=== PATIENT | female | born 1990 | race Caucasian/White ===

== ENCOUNTER 2019-05-10 12:47 | Emergency (ER) | payer OTHER ==
--- NOTE | 2019-05-10 13:33 | ER Document Report ---
ED Medical Screen (RME) - General Chief Complaint: Vag Bleeding, +preg <12wks Stated Complaint: VAGINAL BLEEDING Time Seen by Provider: 05/10/19 13:31 Primary Care Provider: JASON DURHAM FNP [Primary Care Provider] - Follow up as needed Mode of Arrival: Ambulatory Information source: Patient Notes: 28-year-old female patient G2, P1 presenting to the emergency department with chief complaint of vaginal bleeding in the setting of . Patient reports she started having some low abdominal pain last night however this morning she passed some bloody tissue. Patient is very tearful in triage. Exam: Mild tenderness across the low abdomen. I have greeted and performed a rapid initial assessment of this patient. A comprehensive ED assessment and evaluation of the patient, analysis of test results and completion of the medical decision making process will be conducted by additional ED providers. I have specifically instructed the patient or family members with the patient to immediately return to any nursing staff should anything change in the patient's condition or with their chief complaint. Physical Exam - Vital signs Vitals: Temp Pulse Resp BP Pulse Ox 98.7 F 128 H 18 148/78 H 99 05/10/19 12:51 05/10/19 12:51 05/10/19 12:51 05/10/19 12:51 05/10/19 12:51 Course - Vital Signs Vital signs: Temp Pulse Resp BP Pulse Ox 98.7 F 128 H 18 148/78 H 99 05/10/19 12:51 05/10/19 12:51 05/10/19 12:51 05/10/19 12:51 05/10/19 12:51 Doctor's Discharge - Discharge Referrals: JASON DURHAM FNP [Primary Care Provider] - Follow up as needed
[2019-05-10 14:17] LABS: ABSOLUTE EOSINOPHILS # (AUTO) 0.1 10^3/uL (0.0-0.6); ABSOLUTE LYMPHOCYTES (AUTO) 1.9 10^3/uL (0.5-4.7); ABSOLUTE MONOCYTES (AUTO) 0.6 10^3/uL (0.1-1.4); ABSOLUTE NEUT (AUTO) 9.4 10^3/uL (1.7-8.2); BASOPHILS % (AUTO) 0.4 % (0-2); EOSINOPHILS % (AUTO) 0.5 % (0-6); HEMOGLOBIN 14.1 g/dL (12.0-15.5); LYMPHOCYTES % (AUTO) 15.8 % (13-45); MEAN CORPUSCULAR HEMOGLOBIN 29.2 pg (27.0-33.4); MEAN CORPUSCULAR HGB CONC 34.5 g/dL (32.0-36.0); MEAN CORPUSCULAR VOLUME 85 fl (80-97); MONOCYTES % (AUTO) 4.9 % (3-13); PLATELET COUNT 357 10^3/uL (150-450); RED BLOOD COUNT 4.84 10^6/uL (3.72-5.28); RED CELL DISTRIBUTION WIDTH 13.9 % (11.5-14.0); SEGMENTED NEUTROPHILS % (AUTO) 78.4 % (42-78); TOTAL CELLS COUNTED % (AUTO) 100 %; WHITE BLOOD COUNT 11.9 10^3/uL (4.0-10.5)
[2019-05-10 14:29] LABS: APPEARANCE,URINE CLOUDY; BILIRUBIN,URINE NEGATIVE (NEGATIVE); COLOR,URINE YELLOW; GLUCOSE, URINE NEGATIVE (NEGATIVE); KETONES,URINE NEGATIVE (NEGATIVE); LEUKOCYTE ESTERASE,URINE SMALL (NEGATIVE); NITRITE,URINE NEGATIVE (NEGATIVE); PROTEIN,URINE NEGATIVE (NEGATIVE); URINE SPECIFIC GRAVITY 1.001; UROBILINOGEN,URINE NEGATIVE mg/dL (<2.0)
[2019-05-10 14:32] LABS: ALBUMIN 4.6 g/dL (3.5-5.0); ALKALINE PHOSPHATASE 98 U/L (38-126); ANION GAP 11 (5-19); ASPARTATE AMINO TRANSFERASE 25 U/L (14-36); BILIRUBIN,DIRECT 0.2 mg/dL (0.0-0.4); BILIRUBIN,TOTAL 0.5 mg/dL (0.2-1.3); BLOOD UREA NITROGEN 9 mg/dL (7-20); CALCIUM 9.6 mg/dL (8.4-10.2); CARBON DIOXIDE 26 mmol/L (22-30); CHLORIDE 102 mmol/L (98-107); GLUCOSE 102 mg/dL (75-110); POTASSIUM 4.2 mmol/L (3.6-5.0); TOTAL PROTEIN 8.2 g/dL (6.3-8.2)
--- NOTE | 2019-05-10 15:04 | RADIOLOGY REPORT (SQ) ---
EXAM DESCRIPTION: U/S OB TRANSVAGINAL W/O DOP COMPLETED DATE/TIME: 05/10/2019 2:21 pm REASON FOR STUDY: vag bleed, +preg approx 8 weeks COMPARISON: None. TECHNIQUE: Endovaginal static and realtime grayscale images acquired of the pelvis. Additional selec malgorzata spectral and color Doppler images recorded. All images stored on PACs. CLINICAL AGE: Last menstrual period BHCG: Not available LIMITATIONS: None. FINDINGS: UTERUS: An anechoic sac fills the endometrial canal, measuring 3.2 by 1.4 by 2 cm in size. No embryo or yolk sac. This likely represents a blighted ovum. Pseudo gestational sac from ectopi c could not entirely be excluded. Endometrial stripe is thickened, 2 cm in thickness. There is a small amount of fluid in the cervix. RIGHT ADNEXA: Right ovary is 2.4 x 2.2 x 1.9 cm in size with a 1.8 cm complex cyst, most likely a cor pus luteum. Right ovarian ectopic could not entirely be excluded. Normal right ovary colo r flow and spectral Doppler suggests against torsion. No adnexal free fluid. No adnexal masses. LEFT ADNEXA: Normal ovary with normal vascular flow. Left ovary 2.4 x 1.4 x 1.2 cm in size. No adnexal free fluid. No adnexal masses. FREE FLUID: None. OTHER: No other significant finding. IMPRESSION: Findings most likely represent a blighted ovum with spontaneous in progress. R ight ovary corpus luteum. Right ovarian ectopic and pseudo gestational sac could not entir yuliya be excluded No free pelvic fluid COMMENT: Findings discussed with Steffi Liu emergency room TECHNICAL DOCUMENTATION: JOB ID: [id number] [employer]- All Rights Reserved Reading location - IP/workstation name: [facility]
[2019-05-10 16:39] VITALS: BP 131/76
--- NOTE | 2019-05-10 16:39 | ER Document Report ---
ED GI/ - General Chief Complaint: Vaginal Bleeding Stated Complaint: VAGINAL BLEEDING Time Seen by Provider: 05/10/19 13:31 Primary Care Provider: [facility] [Provider Group] - Follow up as needed JASON DURHAM FNP [NO LOCAL MD] - Follow up as needed Mode of Arrival: Ambulatory Information source: Patient Notes: 28-year-old female presented to ED for complaint of vaginal bleeding and passing of some "white tissue "she states she has had some bleeding also. She states she is not having a lot of cramping she is sore down there and feels like there is some pressure. I did give the labs and ultrasound results to the patient and and then left him with time to accept the information. I have then come back in and they have agreed to follow-up with MINING ANALYST in the morning. She is O- blood type and states she did get RhoGam on April 09 for spotting in early . She states at that time she did have an early with a vis ible heartbeat with no audible heartbeat. - HPI Patient complains to provider of: , Vaginal bleeding Onset: Yesterday Timing/Duration: Gradual Quality of pain: Other Severity in ED: Mild Pain Level: 1 Vaginal bleeding (Compared to normal period): Spotting LMP: Miscarriage : 2 heart tones (bpm): 0 OB ultrasound done: Yes Associated symptoms: Other Exacerbated by: Denies Relieved by: Denies Similar symptoms previously: Yes Recently seen / treated by doctor: Yes Past Medical History - General Information source: Patient - Social History Smoking Status: Never Smoker Frequency of alcohol use: None Drug Abuse: None Lives with: Family Family History: Reviewed & Not Pertinent Patient has suicidal ideation: No Patient has homicidal ideation: No - Past Medical History Cardiac Medical History: Reports: None Pulmonary Medical History: Reports: None EENT Medical History: Reports: None Neurological Medical History: Reports: None Endocrine Medical History: Reports: None Renal/ Medical History: Reports: None Malignancy Medical History: Reports: None GI Medical History: Reports: None Musculoskeletal Medical History: Reports None Skin Medical History: Reports None Traumatic Medical History: Reports: None Infectious Medical History: Reports: None Surgical Hx: Negative Past Surgical History: Reports: None - Immunizations Immunizations up to date: Yes Review of Systems - Review of Systems Constitutional: No symptoms reported EENT: No symptoms reported Cardiovascular: No symptoms reported Respiratory: No symptoms reported Gastrointestinal: No symptoms reported Genitourinary: No symptoms reported Female Genitourinary: , Vaginal bleeding Musculoskeletal: No symptoms reported Skin: No symptoms reported Hematologic/Lymphatic: No symptoms reported Neurological/Psychological: No symptoms reported -: Yes All other systems reviewed and negative Physical Exam - Vital signs Vitals: Temp Pulse Resp BP Pulse Ox 98.7 F 128 H 18 148/78 H 99 05/10/19 12:51 05/10/19 12:51 05/10/19 12:51 05/10/19 12:51 05/10/19 12:51 Interpretation: Normal - General General appearance: Appears well, Alert - HEENT Head: Normocephalic, Atraumatic Eyes: Normal Pupils: PERRL - Respiratory Respiratory status: No respiratory distress Chest status: Nontender Breath sounds: Normal Chest palpation: Normal - Cardiovascular Rhythm: Regular Heart sounds: Normal auscultation Murmur: No - Abdominal Inspection: Normal Distension: No distension Bowel sounds: Normal Tenderness: Nontender Organomegaly: No organomegaly - Back Back: Normal, Nontender - Extremities General upper extremity: Normal inspection, Nontender, Normal color, Normal ROM, Normal temperature General lower extremity: Normal inspection, Nontender, Normal color, Normal ROM, Normal temperature, Normal weight bearing. No: Jax's sign - Neurological Neuro grossly intact: Yes Cognition: Normal Orientation: AAOx4 Yadin Coma Scale Eye Opening: Spontaneous Aydin Coma Scale Verbal: Oriented Aydin Coma Scale Motor: Obeys Commands Aydin Coma Scale Total: 15 Speech: Normal Motor strength normal: LUE, RUE, LLE, RLE Sensory: Normal - Psychological Associated symptoms: Normal affect, Normal mood - Skin Skin Temperature: Warm Skin Moisture: Dry Skin Color: Normal Course - Re-evaluation Re-evalutation: 05/10/19 16:48 Discussed labs and ultrasound with patient. Patient's pulse was still [address] Morales. He states as long as the pulse came down or did not go up she could go home and a half an hour. She states she would follow-up with the MINING ANALYST in the morning. - Vital Signs Vital signs: Temp Pulse Resp BP Pulse Ox 98.2 F 100 20 131/76 H 100 05/10/19 16:38 05/10/19 17:10 05/10/19 16:38 05/10/19 16:38 05/10/19 16:38 - Laboratory Result Diagrams: 05/10/19 13:45 05/10/19 13:45 Laboratory results interpreted by me: 05/10/19 05/10/19 05/10/19 13:45 13:45 14:15 WBC 11.9 H Absolute Neuts (auto) 9.4 H Seg Neutrophils % 78.4 H Beta HCG, Quant 5573.50 H Urine Blood LARGE H Ur Leukocyte Esterase SMALL H - Diagnostic Test Radiology reviewed: Image reviewed, Reports reviewed Discharge - Discharge Clinical Impression: Spontaneous Condition: Stable Disposition: HOME, SELF-CARE Additional Instructions: Miscarriage You have had a miscarriage (medically called a "spontaneous "). The miscarriage occurred because the fetus did not develop normally. There is nothing you did to cause it, and nothing you could have done to prevent it. About one in four ends in miscarriage. You should rest in bed for two or three days. As there is some risk of infection of the uterus, you should not have intercourse for one week (or until okayed by your physician). You might not have a period for six to eight weeks. You should not become again for at least three months -- the uterus requires time to get back to normal. Call the doctor or return for re-examination if there is heavy or persistent vaginal bleeding, fever, foul discharge, continued cramping pains, or abdominal pain. FOLLOW-UP CARE: If you have been referred to a physician for follow-up care, call the physicians office for an appointment as you were instructed or within the next two days. If you experience worsening or a significant change in your symptoms (very heavy bleeding with large clots of blood, passage of tissue, more severe abdominal / pelvic pain or cramping, feeling faint or severe weakness, fever, etc.), notify the physician immediately or return to the Emergency Department at any time for re-evaluation. OBSTETRIC-GYNECOLOGIC (OB-TERRAZZO HELPER) PHYSICIANS IN [place]: [facility] [address] [place] [address] [phone] Prescriptions: Ibuprofen [Motrin 600 mg Tablet] 600 mg PO Q8HP PRN #20 tablet PRN Reason: Forms: Elevated Blood Pressure, Return to Work Referrals: JASON DURHAM FNP [NO LOCAL MD] - Follow up as needed [facility] [Provider Group] - Follow up as needed
== END 2019-05-10 17:20 | disposition home or self-care (01) ==
LOC: ER 12:47
DX: O03.9 Complete or unspecified spontaneous abortion without complication (principal)
CPT/HCPCS: 36415; 76817; 80053; 81001; 84702; 85025; 86850; 86870; 86900; 86901; 99284

== ENCOUNTER 2020-04-08 19:46 | Outpatient (CLI) | payer OTHER ==
[2020-04-08 20:20] LABS: APPEARANCE,URINE CLEAR; BILIRUBIN,URINE NEGATIVE (NEGATIVE); COLOR,URINE STRAW; GLUCOSE, URINE NEGATIVE (NEGATIVE); KETONES,URINE NEGATIVE (NEGATIVE); LEUKOCYTE ESTERASE,URINE TRACE (NEGATIVE); NITRITE,URINE NEGATIVE (NEGATIVE); PROTEIN,URINE NEGATIVE (NEGATIVE); URINE SPECIFIC GRAVITY 1.006; UROBILINOGEN,URINE NEGATIVE mg/dL (<2.0)
[2020-04-08 20:45] LABS: URINE AMPHETAMINES SCREEN NEGATIVE; URINE BARBITURATES SCREEN NEGATIVE; URINE BENZODIAZEPINES SCREEN NEGATIVE; URINE COCAINE SCREEN NEGATIVE; URINE MARIJUANA (THC) SCREEN NEGATIVE; URINE METHADONE SCREEN NEGATIVE; URINE PHENCYCLIDINE SCREEN NEGATIVE
--- NOTE | 2020-04-08 20:50 | Non Stress Test Report ---
Non Stress Test Datetime Report Generated by CPN: 04/08/2020 20:50 DEMOGRAPHIC EGA NST: 40.2 INDICATION Indication for Study (NST) Other: SROM ? VITAL SIGNS Temperature - NST: 98.4 RESP - NST: 16 MONITORING Monitor Explained: Monitor Explained; Test Explained; Patient Verbalized Understanding Time on Monitor: 04/08/2020 20:07 Time off Monitor: 04/08/2020 20:40 NST Duration: 33 NST INTERVENTIONS NST Interventions: PO Hydration; Reposition Patient Physician Notified NST: Corado Physician Notified NST: Dr Corado BABY A: [id number] BABY A Movement : Present Contraction Frequency : 10 FHR Baseline : 125 Accelerations : 15X15 Decelerations : None Variability : Moderate 6-25bpm NST Review: Meets Criteria for Reactive NST NST Review and Verified By : Luke Wallace RN NST Results: Reactive NST REPORT Report Trigger: Send Report
== END 2020-04-08 20:49 | disposition home or self-care (01) ==
LOC: LC 19:46
PROVIDERS: ATTEND Student in an Organized Health Care Education/Training Program
DX: O47.1 False labor at or after 37 completed weeks of gestation (principal); Z3A.40 40 weeks gestation of pregnancy
CPT/HCPCS: 59025; 80307; 81005; 84112

== ENCOUNTER 2020-04-15 06:32 | Inpatient (IN) | payer OTHER ==
--- NOTE | 2020-04-15 07:12 | Admission Physical ---
Datetime Report Generated by CPN: 04/15/2020 07:12 CURRENT ADMISSION Chief Complaint: Uterine Contractions Indication for Induction- Other: GDM Admit Impression : Term, Intrauterine Admit Plan: Admit to Unit; Initiate Labor Induction Protocol ALLERGIES Medication Allergies: No Medication Allergies: No Known Allergies (04/15/2020) Latex: No Latex Allergies Food Allergies: no Environmental Allergies: no OBSTETRICAL HISTORY EDC: 04/06/2020 00:00 : 3 Para: 1 Term: 1 : 0 SAB: 1 IAB: 0 Ectopic: 0 Livin Cesareans: 0 VBACs: 0 Multiple Births: 0 Gestational Diabetes: No Rh Sensitization: No Incompetent Cervix: No KRIS: No Infertility: No ART Treatment: No Uterine Anomaly: No IUGR: No Hx Previous C/S: No Macrosomia: No Hx Loss/Stillborn: No PIH: No Hx : No Placenta Previa/Abruption: No Depression/PP Depression: No PTL/PROM: No Post Hemorrhage: No Current Procedures: Ultrasound Obstetrical History Comments: 2013 G2- current SEE RECORDS Alcohol: No Marijuana : No Cocaine: No Other Illicit Drugs: No Cigarettes: Never Smoker. 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 Surgery: No Heart Disease: No Hosp/Surgery: No Autoimmune Disorder: No Anesthetic Complications: No Kidney Disease: No Abnormal Pap Smear: No Neuro/Epilepsy: No Psychiatric Disorders: No Other Medical Diseases: No Hepatitis/Liver Disease: No Significant Family History: No Varicosities/Phlebitis: No Trauma/Violence : No Thyroid Dysfunction: No Medical History Comments: anemia, tachycardia INFECTIOUS HISTORY Gonorrhea: No Genital Herpes: No Chlamydia: No Tuberculosis: No Syphilis: No Hepatitis: No HIV/AIDS Exposure: No Rash or Viral Illness: No HPV: No PHYSICAL EXAM General: Normal HEENT: Normal Neurologic: Normal Thyroid: Normal Heart: Normal Lungs: Normal Breast: Deferred Back: Normal Abdomen: Normal Genitourinary Exam: Normal Extremities: Normal DTRs: Normal Pelvic Type: Adequate Vital Signs: Reviewed VAGINAL EXAM Dilatation: 3 Effacement: 50 Station: -2 MEMBRANES Pooling: Negative Membranes: Intact FETUS A EGA: 41.2 Monitoring: External US FHR- Baseline: 130 Variability: Moderate 6-25bpm Decelerations: None FHR Category: Category I Presentation: Vertex Admit Comment: efw is 8-9 lbs PLANS FOR LABOR AND DELIVERY Labor and Delivery: None Pain Management: Epidural Feeding Preference: Breast Benefit of Breast Feed Discussed: Yes Circumcision: N/A INFORMED CONSENT Signature: with User ID: [email or web address]
[2020-04-15] MEDS ORDERED: LIDOCAINE 1% INJ-PF (10 MG/ML) 30 ML SDV ONE (07:33)
[2020-04-15] MEDS ORDERED: MISOPROSTOL 0.2 MG TABLET ONE (07:33)
[2020-04-15] MEDS ORDERED: OXYTOCIN/0.9 % SODIUM CHLORIDE 30 UNIT/500 ML RTUINJ ONE (07:33)
[2020-04-15] MEDS ORDERED: OXYTOCIN 10 UNIT/ML VIAL ONE (07:33)
[2020-04-15] MEDS ORDERED: OXYTOCIN/0.9 % SODIUM CHLORIDE 30 UNIT/500 ML RTUINJ IV PRN ×2 (07:55→16:36)
[2020-04-15] MEDS ORDERED: PENICILLIN G-K 5 MILLION UNIT VIAL ONE (07:58)
[2020-04-15] MEDS ORDERED: PENICILLIN G POTASSIUM 5,000,000 UNIT in DEXTROSE 5%-WATER 100 ML IV ONE (08:00)
[2020-04-15] MEDS ORDERED: RINGERS SOLUTION,LACTATED 1,000 ML IV ONE (08:00)
[2020-04-15 08:51] LABS: ABSOLUTE EOSINOPHILS # (AUTO) 0.1 10^3/uL (0.0-0.6); ABSOLUTE LYMPHOCYTES (AUTO) 1.9 10^3/uL (0.5-4.7); ABSOLUTE MONOCYTES (AUTO) 0.6 10^3/uL (0.1-1.4); ABSOLUTE NEUT (AUTO) 8.7 10^3/uL (1.7-8.2); BASOPHILS % (AUTO) 0.3 % (0-2); EOSINOPHILS % (AUTO) 0.6 % (0-6); HEMATOCRIT 30.9 % (36.0-47.0); HEMOGLOBIN 10.8 g/dL (12.0-15.5); LYMPHOCYTES % (AUTO) 17.1 % (13-45); MEAN CORPUSCULAR HEMOGLOBIN 29.8 pg (27.0-33.4); MEAN CORPUSCULAR HGB CONC 35.1 g/dL (32.0-36.0); MEAN CORPUSCULAR VOLUME 85 fl (80-97); PLATELET COUNT 241 10^3/uL (150-450); RED BLOOD COUNT 3.63 10^6/uL (3.72-5.28); RED CELL DISTRIBUTION WIDTH 15.1 % (11.5-14.0); TOTAL CELLS COUNTED % (AUTO) 100 %; WHITE BLOOD COUNT 11.3 10^3/uL (4.0-10.5)
[2020-04-15 09:03] LABS: APPEARANCE,URINE SLIGHTLY-CLOUDY; BILIRUBIN,URINE NEGATIVE (NEGATIVE); COLOR,URINE YELLOW; GLUCOSE, URINE NEGATIVE (NEGATIVE); KETONES,URINE NEGATIVE (NEGATIVE); LEUKOCYTE ESTERASE,URINE MODERATE (NEGATIVE); NITRITE,URINE NEGATIVE (NEGATIVE); PROTEIN,URINE NEGATIVE (NEGATIVE); URINE SPECIFIC GRAVITY 1.009; UROBILINOGEN,URINE NEGATIVE mg/dL (<2.0)
[2020-04-15 09:18] LABS: URINE AMPHETAMINES SCREEN NEGATIVE; URINE BARBITURATES SCREEN NEGATIVE; URINE BENZODIAZEPINES SCREEN NEGATIVE; URINE COCAINE SCREEN NEGATIVE; URINE MARIJUANA (THC) SCREEN NEGATIVE; URINE METHADONE SCREEN NEGATIVE; URINE PHENCYCLIDINE SCREEN NEGATIVE
[2020-04-15] MEDS: RINGERS SOLUTION,LACTATED 1,000 ML IV PRN ×3 (10:30→15:57)
[2020-04-15] MEDS ORDERED: PENICILLIN G POTASSIUM 2,500,000 UNIT in DEXTROSE 5%-WATER 50 ML IV SCH (12:00)
--- NOTE | 2020-04-15 12:06 | L&D Progress Notes ---
PROGRESS NOTES Datetime Report Generated by CPN: 04/15/2020 12:06 PROGRESS NOTE Impression: Reassuring Heart Rate Procedures: Artificial ROM; Sterile Vag Exam Plan: Continue Present Management; Induction; Antibiotic Therapy Plan Other: may have epidural when desires Vital Signs : Reviewed; Within Normal Limits Comment: Pitocin infusing for IOL, PCN second dose hanging. VE 4/50/-2. AROM w/ moderate amount clear fluid. Pt may have an epidural when she desires. Position changes encouraged VAGINAL EXAM Dilatation: 3 Effacement: 50 Station: -2 LAST VAGINAL EXAM-NURSING Nursing Exam Dilitation: 4.0 Nursing Exam Effacement: 50 Nursing Exam Station: -2 Nursing Exam Contractions: Troubleshooting LESLI MEMBRANES Pooling: Negative Membranes: Bulging Amniotic Fluid Color: Clear FETUS A FHR - Baseline: 145 Monitoring: External US Variability: Moderate 6-25bpm Accelerations: 15X15 Decelerations: None FHR Category: Category I : 41.0 Presentation: Vertex SIGNATURE SIGNATURE: [id number];[id number];13,[id number] Assignment: Darline Corado MD Signature: with User ID: Devora : with User ID: Devora
[2020-04-15] MEDS ORDERED: EPHEDRINE SULFATE INJ 50 MG/1 ML AMPULE ONE (12:19)
[2020-04-15] MEDS ORDERED: FENTANYL/BUPIVACAINE/NS/PF 300 MCG/150 ML RTUINJ EPI ONE (12:19)
[2020-04-15] MEDS ORDERED: ROPIVACAINE HCL 0.2% INJ/PF (2 MG/ML) 20 ML SDV ONE (12:20)
[2020-04-15] MEDS ORDERED: MEASLES,MUMPS&RUBELLA VACC/PF 0.5 ML VIAL SUBCUT PRN (16:36)
[2020-04-15] MEDS ORDERED: PSEUDOEPHEDRINE HCL 30 MG TABLET PO PRN (16:36)
[2020-04-15] MEDS ORDERED: DIPHENHYDRAMINE HCL 25 MG CAPSULE PO PRN (16:36)
[2020-04-15] MEDS ORDERED: MAGNESIUM HYDROXIDE SUSP 30 ML UDCUP PO PRN (16:36)
[2020-04-15] MEDS ORDERED: PROMETHAZINE HCL 25 MG SUPP.RECT PR PRN (16:36)
[2020-04-15] MEDS ORDERED: ZOLPIDEM TARTRATE 5 MG TABLET PO PRN (16:36)
[2020-04-15] MEDS ORDERED: NA PHOS,M-B/NA PHOS,DI-BA (ADULT) 133 ML ENEMA PR PRN (16:36)
[2020-04-15] MEDS ORDERED: PROMETHAZINE HCL INJ 25 MG/1 ML VIAL IV PRN (16:36)
[2020-04-15] MEDS ORDERED: ACETAMINOPHEN WITH CODEINE #3 TABLET PO PRN ×2 (16:36)
[2020-04-15] MEDS ORDERED: DIBUCAINE 1% OINTMENT 28 GM TP PRN (16:36)
[2020-04-15] MEDS ORDERED: GLYCERIN/WITCH HAZEL LEAF 1 EACH MED..WIPE TP PRN (16:36)
[2020-04-15] MEDS ORDERED: PROMETHAZINE HCL 25 MG TABLET PO PRN (16:36)
[2020-04-15] MEDS ORDERED: BENZOCAINE/MENTHOL AEROSOL SPRAY 56 ML TOP PRN (16:36)
[2020-04-15] MEDS ORDERED: ACETAMINOPHEN 325 MG TABLET PO PRN (16:36)
[2020-04-15] MEDS ORDERED: DIPH/PERTUSS(ACELL)/TETANUS VAC/PF 0.5 ML SYR (>=10YO) IM PRN (16:36)
--- NOTE | 2020-04-15 18:29 | Birth Certificate Data ---
Cert Data Datetime Report Generated by CPN: 04/15/2020 18:28 CERTIFICATE DATA Delivery Provider: Darline Corado MD (04/08/2020 20:10:Jess cMcain RN) 47a. Care: Yes (04/08/2020 20:10:JOMAR Moralez) 47b. Date of First Visit: 10/07/2019 00:00 (04/08/2020 20:10:JOMAR Moralez) 47c. Date of Last Visit: 04/06/2020 00:00 (04/08/2020 20:10:JOMAR Moralez) 47d. Number of Visits: 14 (04/08/2020 20:10:JOMAR Moralez) 48a. Number of Prev Live Births: 1 (04/08/2020 20:10:JOMAR Moralez) 48b. Now Livin (04/08/2020 20:10:JOMAR Moralez) 48c. Live Births Now : 0 (04/08/2020 20:10: system process) 48d. Date of Last Live : 11/27/2013 00:00 (04/08/2020 20:10:JOMAR Moralez) 48e. Losses: 1 (04/08/2020 20:10:JOMAR Moralez) 48f. Date of Last Preg Loss: 01/11/2017 00:00 (04/08/2020 20:10:JOMAR Moralez) RISK FACTORS IN THIS 49a. Diabetes: No (04/08/2020 20:10:Ángela Gibbs RN) 49b. Hypertension: No (04/08/2020 20:10:Ángela Gibbs RN) 49c. Previous Births: 0 (04/08/2020 20:10:JOMAR Moralez) 49d. Stillborns: No (04/08/2020 20:10:Ángela Gibbs RN) 49d. IUGR: No (04/08/2020 20:10:Ángela Gibbs RN) 49e. Infertility Treatment: No (04/08/2020 20:10:Ángela Gibbs RN) 49f. Previous Cesareans: 0 (04/08/2020 20:10:JOMAR Moralez) Mother's Height 50b. Height Inches: 65 (04/08/2020 19:59:QS system process) Mother's Weight 51a. Pre- Weight (lbs): 191 (04/08/2020 20:10:JOMAR Moralez) 51b. Weight at Delivery (lbs): 211 (04/15/2020 12:01:QS system process) 52. Dt Last Normal Menses Began: 07/06/2019 00:00 (04/08/2020 20:10:August ANDER Mccain) Infections Present/Treated 53a. Gonorrhea: No (04/08/2020 20:10:Ángela Gibbs RN) Results this Hospital Visit : Negative (04/08/2020 20:10:JOMAR Moralez) 53b. Syphilis: No (04/08/2020 20:10:Ángela Gibbs RN) 53c. Chlamydia: Yes (04/08/2020 20:10:Jess Mccain RN) Results this Hospital Visit: Negative (04/08/2020 20:10:JOMAR Moralez) 53d. Hepatitis B: No (04/08/2020 20:10:Ángela Gibbs RN) Results this Hospital Visit: Negative (04/08/2020 20:10:JOMAR Moralez) 53e. Hepatitis C: Negative (04/08/2020 20:10:JOMAR Moralez) 53h. Mother Tested for HBsAG: Yes (04/08/2020 20:10:JOMAR Moralez) 53i. Date Tested: 10/07/2019 00:00 (04/08/2020 20:10:JOMAR Moralez) 53j. Test Result: Negative (04/08/2020 20:10:JOMAR Moralez) Obstetric Procedures 54a, b, c. Obstetric Procedures: Ultrasound (04/08/2020 20:10:Ángela Gibbs RN) Cigarette Smoking Cigarette Smoking: Never Smoker. [id number] (04/08/2020 20:10:JOMAR Moralez) 55a. 3 Months Before Preg - Ci (04/08/2020 20:10:Ángela Gibbs RN) 55a. Packs: 0 (04/08/2020 20:10:Ángela Gibbs RN) 55b. 1st Trimester of Preg- Ci (04/08/2020 20:10:Ángela Gibbs RN) 55b. Packs: 0 (04/08/2020 20:10:Ángela Gibbs RN) 55c. 2nd Trimester of Preg- Ci (04/08/2020 20:10:Ángela Gibbs RN) 55c. Packs: 0 (04/08/2020 20:10:Ángela Gibbs RN) 55d. 3rd Trimester of Preg- Ci (04/08/2020 20:10:Ángela Gibbs RN) 55d. Packs: 0 (04/08/2020 20:10:Ángela Gibbs RN) Onset of Labor 56a. PROM >12 Hrs: 4.52 (04/08/2020 20:10:QS system process) 56b. Precipitous Labor <3 Hrs: 4 (04/08/2020 20:10:QS system process) 56c. Prolonged Labor > 20 Hrs: 4 (04/08/2020 20:10:QS system process) 57a. Induction of Labor: Augmentation (04/08/2020 20:10:Jess Mccain RN) 57a. Induction of Labor: Pitocin Induction (04/08/2020 20:10:Darline Corado MD ([facility])) 57c. Non-Vertex Presentation A: Vertex (04/08/2020 20:10:Jess Mccain RN) 57d. Steroids - Lung Mat: None (04/08/2020 20:10:Jess Mccain RN) 57d. Steroids - Lung Mat: Not Applicable (04/08/2020 20:10:Jess Mccain RN) 57e. Antibiotics During Labor: PCN (04/08/2020 20:10:Darline Corado MD ([facility])) 57e. Antibiotics During Labor: 04/15/2020 11:53 (04/08/2020 20:10:Jess Mccain RN) 57f. Mat [place] or Temp >100.4: 98.2 (04/08/2020 20:10:Jess Mccain RN) 57g. Moderate/Heavy Meconium: Clear (04/15/2020 11:57:Jess Mccain RN) 57h. Intolerance of Labor: N/A (04/08/2020 20:10:Alvina Hernandez RN) : N/A (04/08/2020 20:10:Alvina Hernandez RN) 57i. Epidural/Spinal Anesthesia: Epidural (04/08/2020 20:10:Jess Mccain RN) Method of Delivery 58a. Forceps - Unsuccessful A: N/A (04/08/2020 20:10:Jess Feuston, RN) 58b. Vacuum - Unsuccessful A: N/A (04/08/2020 20:10:Jess Feuston, RN) 58c. Presentation at 58c. Presentation at - A : Vertex (04/08/2020 20:10:Jess Feuston, RN) 58c. Presentation at - A : N/A (04/08/2020 20:10:Jess Feust, RN) 58c. Presentation at - A : Cephalic (04/08/2020 20:10:August Feuston, RN) Final Route and Method of Del 58d. Baby A Route/Delivery: Vaginal (04/15/2020 16:28:Jess Mccain RN) 58e. Trial of Labor Attempted: No (04/08/2020 20:10:Jess Mccain RN) 58e. Trial of Labor Attempted A: N/A (04/08/2020 20:10:Jess Mccain RN) 58e. Trial of Labor Attempted B: N/A (04/08/2020 20:10:Jess Mccain RN) Maternal Morbidity 59b. 3rd or 4th Degree Lacs: None (04/08/2020 20:10:Alvina Hernandez RN) Birthweight Baby A: 3674 (04/08/2020 20:10:Jess Mccain RN) 60a. Pounds : 8 (04/08/2020 20:10:QS system process) 60b. Ounces: 2 (04/08/2020 20:10:QS system process) 61. GA at Delivery Baby A: 40.4 (04/08/2020 20:10:Jess Fetimo, RN) : Full Term- 39- 40.6 Weeks (04/08/2020 20:10:QS system process) 62a. 5 Minute Baby A: 9 (04/08/2020 20:10:QS system process)
--- NOTE | 2020-04-15 18:29 | Delivery Summary ---
Del Sum A-C Datetime Report Generated by CPN: 04/15/2020 18:28 DELIVERY PERSONNEL DELIVERY PERSONNEL: [id number] Delivery Doctor:: Darline Corado MD COMPENSATION CONSULTING MANAGER:: Roz Chinchilla CRNA Labor and Delivery Nurse:: Jess Mccain RNbroiler chef or cook Nurse:: JOMAR Wright Nursery Nurse:: Isabel Rodriguez RN Developmental Education Instructor/PERIOPERATIVE TECH: Bev Mireles, ST MATERNAL INFORMATION Delivery Anesthesia: Epidural Medications After Delivery: Pitocin 30 Units in 500ml NS/D5W; Cytotec 1000mcg Per Rectum/Vagina Estimated Blood Loss (ml): 100 Delivery QBL: 100 Maternal Complications: None Provider Comments: VFI delivered in [place]ARDO presentation. No nuchal cord. Compound right hand. Shoulders and body delivered without difficulty. Cord doubly clamped and cut and infant to maternal abdomen for NRP. Placenta delivered intact spontaneously. FF at U. No perineal lacerations. Mother and baby stable upon provider leaving the room. LABOR SUMMARY EDC: 04/11/2020 00:00 No. Babies in Womb: 1 Attempted: No Labor Anesthesia: Epidural LABOR INFORMATION Reason for Induction: Maternal Diabetes Onset of Labor: 04/15/2020 12:00 Complete Dilatation: 04/15/2020 16:06 Other Ripening Agents: Pitocin Induction Oxytocin: Augmentation Group B Beta Strep: pos Antibiotics # of Doses: 2 Antibiotics Time of Last Dose: 04/15/2020 11:53 Name of Antibiotic Given: Penicillin G Steroids Given: None Reason Steroids Not Administered: Not Applicable MEMBRANES Membranes Rupture Method: Artificial Rupture of Membranes: 04/15/2020 11:57 Length of Rupture (hr): 4.52 Amniotic Fluid Color: Clear Amniotic Fluid Amount: Large Amniotic Fluid Odor: Normal STAGES OF LABOR Stage 1 hr: 4 Stage 1 min: 6 Stage 2 hr: 0 Stage 2 min: 22 Stage 3 hr: 0 Stage 3 min: 4 Total Time in Labor hr: 4 Total Time in Labor min: 32 VAGINAL DELIVERY Episiotomy: None Laceration #1: None Laceration Extension #1: N/A Laceration Repair: Not Applicable Sponge Count Correct: Yes Sharps Count Correct: Yes CSECTION DELIVERY Primary Indication: N/A Secondary Indication: N/A CSection Incidence: N/A Labor: N/A Elective: N/A CSection Incision: N/A BABY A INFORMATION Delivery Date/Time: 04/15/2020 16:28 Method of Delivery: Vaginal Nurse Controlled Delivery: No Born in Route : No : N/A Forceps: N/A Vacuum Extraction: N/A Shoulder Dystocia : No PRESENTATION/POSITION BABY A Presentation: Cephalic Cephalic Presentation: Vertex Vertex Position: Right Occipital Anterior Breech Presentation: N/A PLACENTA INFORMATION BABY A Placenta Delivery Time : 04/15/2020 16:32 Placenta Method of Delivery: Spontaneous Placenta Status: Delivered SCORES BABY A Heart Rate 1 min: >100 bpm Resp Effort 1 min: Good Cry Reflex Irritability 1 min: Cough or Sneeze or Pulls Away Muscle Tone 1 min: Active Motion Color 1 min: Body [place], Extremities Blue Resuscitation Effort 1 min: Tactile Stimulation SCORE 1 MIN: 9 Heart Rate 5 min: >100 bpm Resp Effort 5 min: Good Cry Reflex Irritability 5 min: Cough or Sneeze or Pulls Away Muscle Tone 5 min: Active Motion Color 5 min: Body [place], Extremities Blue Resuscitation Effort 5 min: N/A SCORE 5 MIN: 9 INFANT INFORMATION BABY A Gestational Age at Delivery: 40.4 Gestational Status: Full Term- 39- 40.6 Weeks Outcome : Liveborn Infant Condition : Stable Sex: Female IDENTIFICATION BABY A Infant Verification Date/Time: 04/15/2020 17:41 ID Band Number: [id number] Mother's Name Verified: Yes Infant RN Verifying Infant: Afeuston, RN Additional Verifying Personnel: T. Rene, RN WEIGHT/LENGTH BABY A Infant Birthweight (gm): 3674 Weight (lb): 8 Weight (oz): 2 Length (in): 20.25 Length (cm): 51.44 CORD INFORMATION BABY A No. Cord Vessels: 3 Nuchal Cord : N/A Cord Blood Taken: Yes-For Eval (Mom's Blood Type - or O+) Infant Suction: None ASSESSMENT BABY A Physical Findings at Delivery: Within Normal Limits Infant Respirations: Appears Normal Skin to Skin: Yes Skin to Skin Time (min): 65 Phys Therapist/ALS Called : No Care By: Seb Rodriguez, RN Transferred To: Remains with Mother BABY B INFORMATION : N/A SIGNATURES Signature: with User ID: [email or web address]
[2020-04-15] MEDS: FERROUS SULFATE 325 MG TABLET PO SCH (18:55)
[2020-04-15] MEDS: DOCUSATE SODIUM 100 MG CAPSULE PO SCH (18:55)
[2020-04-15] MEDS: FAMOTIDINE 20 MG TABLET PO SCH (21:09)
[2020-04-15] MEDS: IBUPROFEN 800 MG TABLET PO SCH (21:09)
[2020-04-16] MEDS: IBUPROFEN 800 MG TABLET PO SCH ×3 (06:01→22:50)
[2020-04-16 06:41] LABS: HEMATOCRIT 31.4 % (36.0-47.0); MEAN CORPUSCULAR HEMOGLOBIN 29.9 pg (27.0-33.4); MEAN CORPUSCULAR HGB CONC 34.9 g/dL (32.0-36.0); MEAN CORPUSCULAR VOLUME 86 fl (80-97); PLATELET COUNT 209 10^3/uL (150-450); RED BLOOD COUNT 3.66 10^6/uL (3.72-5.28); RED CELL DISTRIBUTION WIDTH 14.9 % (11.5-14.0); WHITE BLOOD COUNT 10.3 10^3/uL (4.0-10.5)
[2020-04-16] MEDS: PRENATAL VITAMIN W DHA CAPSULE PO SCH (10:18)
[2020-04-16] MEDS: FERROUS SULFATE 325 MG TABLET PO SCH ×2 (10:18→18:05)
[2020-04-16] MEDS: SENNOSIDES/DOCUSATE 8.6-50 MG 1 EACH TABLET PO SCH (10:18)
[2020-04-16] MEDS: DOCUSATE SODIUM 100 MG CAPSULE PO SCH ×2 (10:18→18:05)
[2020-04-16] MEDS: FAMOTIDINE 20 MG TABLET PO SCH ×2 (10:18→22:50)
--- NOTE | 2020-04-16 10:20 | PDOC PROGRESS REPORT ---
Subjective-OB Progress Note for:: 04/16/20 - PP Day #1, O neg, UOB, voiding, no complaints Physical Exam (OB) Vital Signs: Temp Pulse Resp BP Pulse Ox 97.4 F 60 16 113/66 99 04/16/20 09:35 04/16/20 07:39 04/16/20 07:39 04/16/20 07:39 04/16/20 07:39 Intake & Output 04/15/20 04/16/20 04/17/20 06:59 06:59 06:59 Intake Total 1681 Balance 1681 Weight 95.9 kg - General General Appearance: Appears well, Alert - PIH/Pre-Eclampsia DTR's: 2 + Clonus: Positive Headache: Absent Epigastric Pain: No Visual Changes: No - Maternal Morbidity 59. Maternal Morbidity (serious complications experinced by the mother associated with labor and delivery: None of the above - Lochia Lochia Amount: Small 10-25 ml Lochia Color: Rubra/Red - Abdomen Description: Firm Hernia Present: No Fundal Description: Midline Fundal Height: u/u - u/2 - Respiratory Respiratory Status: No respiratory distress - Abdominal Distension: No distension - Genitourinary Genitourinary Note: voiding - Extremities Upper extremity: Normal inspection Lower extremities: Normal inspection - Neurological Cognition: Normal Orientation: AAOx4 - Psychological Associated symptoms: Normal affect, Normal mood - Skin Skin Temperature: Warm Skin Moisture: Dry Objective-Diagnostic Laboratory: 04/16/20 05:54 04/15/20 04/16/20 04/16/20 08:20 05:54 05:54 WBC 10.3 RBC 3.66 L Hgb 11.0 L Hct 31.4 L MCV 86 MCH 29.9 MCHC 34.9 RDW 14.9 H Plt Count 209 Blood Type O NEGATIVE O NEGATIVE Antibody Screen POSITIVE Assessment and Plan(PN) - Assessment and Plan (1) Anemia complicating childbirth Is this a current diagnosis for this admission?: Yes (2) Carrier of group B Streptococcus Is this a current diagnosis for this admission?: Yes (3) Gestational diabetes mellitus (GDM) in childbirth, diet controlled Is this a current diagnosis for this admission?: Yes (4) Vaginal delivery Is this a current diagnosis for this admission?: Yes Plan:: amublation encouraged, routine PP orders - Time Spent with Patient Time with patient: Less than 15 minutes Medications reviewed and adjusted accordingly: Yes - Disposition Anticipated Discharge Disposition: Home, Self Care Anticipated Discharge Timeframe: within 24 hours
[2020-04-17] MEDS: IBUPROFEN 800 MG TABLET PO SCH (06:20)
[2020-04-17] MEDS: DOCUSATE SODIUM 100 MG CAPSULE PO SCH (10:09)
[2020-04-17] MEDS: SENNOSIDES/DOCUSATE 8.6-50 MG 1 EACH TABLET PO SCH (10:09)
[2020-04-17] MEDS: FAMOTIDINE 20 MG TABLET PO SCH (10:09)
[2020-04-17] MEDS: PRENATAL VITAMIN W DHA CAPSULE PO SCH (10:09)
[2020-04-17] MEDS: FERROUS SULFATE 325 MG TABLET PO SCH (10:09)
--- NOTE | 2020-04-17 10:28 | PDOC DISCHARGE SUMMARY ---
Impression - Admit/DC Date/PCP Admission Date/Primary Care Provider: 04/15/20 06:32 EMRE MOHAN MD Discharge Date: 04/17/20 - PP Day #2, will discharge home today, doing well, no complaints, Needs Rhogam prior to d/c home. 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 Streptococcus Is this a current diagnosis for this admission?: Yes (3) Gestational diabetes mellitus (GDM) in childbirth, diet controlled Is this a current diagnosis for this admission?: Yes (4) Vaginal delivery Is this a current diagnosis for this admission?: Yes - Additional Information Resuscitation Status: Full Code Discharge Diet: As Tolerated, Regular Discharge Activity: Activity As Tolerated, No Lifting Over 10 Pounds, Pelvic Rest Referrals: EMRE MOHAN MD [Primary Care Provider] - Prescriptions: Ibuprofen [Motrin 800 mg Tablet] 800 mg PO Q8 #60 tablet Home Medications: Vit,Calc76/Iron/Folic [Prenatabs Rx Tablet] 1 each PO DAILY 04/08/20 Ibuprofen [Motrin 800 mg Tablet] 800 mg PO Q8 #60 tablet 04/17/20 HPI Reason(s) for Admission: Onset of Labor Procedures: Ultrasound Intrapartum Procedure(s): Spontaneous Vaginal Delivery Hospital Course 59. Maternal Morbidity (serious complications experinced by the mother associated with labor and delivery: None of the above Results Laboratory Results: WBC 10.3 10^3/uL (4.0-10.5) 04/16/20 05:54 RBC 3.66 10^6/uL (3.72-5.28) L 04/16/20 05:54 Hgb 11.0 g/dL (12.0-15.5) L 04/16/20 05:54 Hct 31.4 % (36.0-47.0) L 04/16/20 05:54 MCV 86 fl (80-97) 04/16/20 05:54 MCH 29.9 pg (27.0-33.4) 04/16/20 05:54 MCHC 34.9 g/dL (32.0-36.0) 04/16/20 05:54 RDW 14.9 % (11.5-14.0) H 04/16/20 05:54 Plt Count 209 10^3/uL (150-450) 04/16/20 05:54 Lymph % (Auto) 17.1 % (13-45) 04/15/20 08:26 [place] % (Auto) 5.0 % (3-13) 04/15/20 08:26 Eos % (Auto) 0.6 % (0-6) 04/15/20 08:26 Baso % (Auto) 0.3 % (0-2) 04/15/20 08:26 Absolute Neuts (auto) 8.7 10^3/uL (1.7-8.2) H 04/15/20 08:26 Absolute Lymphs (auto) 1.9 10^3/uL (0.5-4.7) 04/15/20 08:26 Absolute Monos (auto) 0.6 10^3/uL (0.1-1.4) 04/15/20 08:26 Absolute Eos (auto) 0.1 10^3/uL (0.0-0.6) 04/15/20 08:26 Absolute Basos (auto) 0.0 10^3/uL (0.0-0.2) 04/15/20 08:26 Seg Neutrophils % 77.0 % (42-78) 04/15/20 08:26 Urine Color YELLOW 04/15/20 06:45 Urine Appearance SLIGHTLY-CLOUDY 04/15/20 06:45 Urine pH 6.0 (5.0-9.0) 04/15/20 06:45 Ur Specific [place] 1.009 04/15/20 06:45 Urine Protein NEGATIVE mg/dL (NEGATIVE) 04/15/20 06:45 Urine Glucose (UA) NEGATIVE mg/dL (NEGATIVE) 04/15/20 06:45 Urine Ketones NEGATIVE mg/dL (NEGATIVE) 04/15/20 06:45 Urine Blood NEGATIVE (NEGATIVE) 04/15/20 06:45 Urine Nitrite NEGATIVE (NEGATIVE) 04/15/20 06:45 Urine Bilirubin NEGATIVE (NEGATIVE) 04/15/20 06:45 Urine Urobilinogen NEGATIVE mg/dL (<2.0) 04/15/20 06:45 Ur Leukocyte Esterase MODERATE (NEGATIVE) H 04/15/20 06:45 Urine Ascorbic Acid NEGATIVE (NEGATIVE) 04/15/20 06:45 Urine Opiates Screen NEGATIVE 04/15/20 06:45 Urine Methadone Screen NEGATIVE 04/15/20 06:45 Ur Barbiturates Screen NEGATIVE 04/15/20 06:45 Ur Phencyclidine Scrn NEGATIVE 04/15/20 06:45 Ur Amphetamines Screen NEGATIVE 04/15/20 06:45 U Benzodiazepines Scrn NEGATIVE 04/15/20 06:45 Urine Cocaine Screen NEGATIVE 04/15/20 06:45 U Marijuana (THC) Screen NEGATIVE 04/15/20 06:45 Blood Type O NEGATIVE 04/16/20 05:54 Antibody Screen POSITIVE 04/15/20 08:20 Antibody Identification RHOGAM INDUCED ANTI-D 04/15/20 08:20 Screen NEGATIVE 04/16/20 05:54 Plan Plan of Treatment: d/c home, f/up with [facility] in 4 wks for PP check Time Spent: Less than 30 Minutes
[2020-04-17 12:43] VITALS: BP 106/53
== END 2020-04-17 13:15 | disposition home or self-care (01) | DRG 807 ==
LOC: LR 06:32 → 2S 18:40
PROVIDERS: ADMIT Student in an Organized Health Care Education/Training Program; ATTEND Student in an Organized Health Care Education/Training Program
PROC: 10E0XZZ Delivery of Products of Conception, External Approach (ICD-10-PCS; principal; 2020-04-15)
PROC: 3E0334Z Introduction of Serum, Toxoid and Vaccine into Peripheral Vein, Percutaneous Approach (ICD-10-PCS; 2020-04-15)
PROC: 3E033VJ Introduction of Other Hormone into Peripheral Vein, Percutaneous Approach (ICD-10-PCS; 2020-04-15)
PROC: 10907ZC Drainage of Amniotic Fluid, Therapeutic from Products of Conception, Via Natural or Artificial Opening (ICD-10-PCS; 2020-04-15)
DX: O24.420 Gestational diabetes mellitus in childbirth, diet controlled (principal); Z37.0 Single live birth; O32.6XX0 Maternal care for compound presentation, not applicable or unspecified; O99.824 Streptococcus B carrier state complicating childbirth; O99.02 Anemia complicating childbirth; Z3A.40 40 weeks gestation of pregnancy
CPT/HCPCS: 1967; 36415; 80307; 81005; 85025; 85027; 85461; 86592; 86850; 86870; 86900; 86901; 94760; J2540; J2590; J2790; J2795; J3010; J3490; J7060